=== PATIENT | male | born 1965 | race Two or more races ===

== ENCOUNTER 2023-03-25 14:59 | Emergency (ER) | payer OTHER ==
[~2023-03-25] VITALS: Ht 162.6 cm; Wt 72.6 kg
[2023-03-25] MEDS ORDERED: TOPROL XL50 M1 PO (15:31)
[2023-03-25] MEDS ORDERED: ALTACE1.25 MG PO (15:31)
== END 2023-03-25 17:42 | disposition home or self-care (01) ==
LOC: ER 14:59
DX: S01.82XA Laceration with foreign body of other part of head, initial encounter (principal); W22.8XXA Striking against or struck by other objects, initial encounter; Y93.89 Activity, other specified; Y92.89 Other specified places as the place of occurrence of the external cause; Z91.013 Allergy to seafood